=== PATIENT | male | born 1975 | race Caucasian/White ===

== ENCOUNTER → 2019-11-15 13:11 | Outpatient (BNVA) | payer OTHER, SELFPAY | PROVIDERS: Family Provider Internal Medicine; Visit Provider Orthopaedic Surgery | DX: M25.461 Effusion, right knee (principal) | CPT/HCPCS: 73560 ==

== ENCOUNTER → 2020-06-25 11:24 | Outpatient (BNVA) | payer OTHER, SELFPAY | PROVIDERS: Family Provider Internal Medicine; Visit Provider Orthopaedic Surgery | DX: S82.141D Displaced bicondylar fracture of right tibia, subsequent encounter for closed fracture with routine healing (principal); W13.2XXD Fall from, out of or through roof, subsequent encounter; M25.561 Pain in right knee | CPT/HCPCS: 73560 ==